=== PATIENT | female | born 1950 | race Caucasian/White ===

== ENCOUNTER 2018-09-14 08:50 | Observation (INO) | payer MEDICARE, OTHER ==
[~2018-09-14] VITALS: Ht 162.6 cm; Wt 79.0 kg
[2018-09-14] MEDS ORDERED: OMEP-110 PO (09:46)
[2018-09-14] MEDS ORDERED: ASPIRIN 81 MG TABLET CHEW ONE (09:48)
[2018-09-14] MEDS ORDERED: ASPIRIN 81 MG TABLET CHEW PO ONE (10:00)
[2018-09-14 10:03] LABS: BASOPHILS # (AUTO) 0.02 x10^3/uL (0-0.1); BASOPHILS % (AUTO) 0 % (0-1); EOSINOPHILS # (AUTO) 0.07 x10^3/uL (0-0.4); EOSINOPHILS % (AUTO) 1 % (1-7); LYMPHOCYTES # (AUTO) 1.39 x10^3/uL (1-3.4); LYMPHOCYTES % (AUTO) 27 % (22-44); MD NO; MEAN CORPUSCULAR HEMOGLOBIN 30.6 pg (27.0-34.8); MEAN CORPUSCULAR HGB CONC 34.1 g/dL (32.4-35.8); MEAN CORPUSCULAR VOLUME 89.7 fL (80-100); MEAN PLATELET VOLUME 8.6 fL (7.4-10.4); MONOCYTES # (AUTO) 0.31 x10^3/uL (0.2-0.8); MONOCYTES % (AUTO) 6 % (2-9); NEUTROPHILS % (AUTO) 66 % (42-75); PLATELET COUNT 218 x10^3/uL (130-400); RED BLOOD COUNT 4.89 x10^6/uL (3.82-5.3)
[2018-09-14 10:13] LABS: ANION GAP 7 mmol/L (5-15); CHLORIDE 110 mmol/L (98-107); CREATININE 0.72 mg/dL (0.55-1.02)
[2018-09-14 10:15] LABS: TROPONIN I < 0.015 ng/mL (0.000-0.045)
--- NOTE | 2018-09-14 10:44 | NUR ---
CONTINUE TO MONITOR PT. PT IN NO DISTRESS WHILE RESTING
[2018-09-14] MEDS ORDERED: SODIUM CHLORIDE FLUSH 10ML SYR IVF ONE (11:00)
--- NOTE | 2018-09-14 11:15 | NUR ---
HOSPITALIST AT BEDSIDE
--- NOTE | 2018-09-14 11:43 | NUR ---
TASK RN: PT RESTING ON GURNEY. NADN. MAS. PT AWARE OF POC FOR ADMIT.
[2018-09-14] MEDS ORDERED: ACETAMINOPHEN 650 MG/20.3 ML UDC PO PRN (12:00)
[2018-09-14] MEDS ORDERED: morphine SULFATE 10 MG/ML, 1ML IV PRN (12:00)
[2018-09-14] MEDS ORDERED: ONDANSETRON 2MG/ML, 2ML IVP PRN (12:00)
[2018-09-14] MEDS ORDERED: ENOXAPARIN 40 MG/0.4 ML SQ SCH (12:00)
[2018-09-14] MEDS ORDERED: NITROGLYCERIN SINGLE TAB 0.4 MG SL PRN (12:00)
[2018-09-14] MEDS ORDERED: NITROGLYCERIN 0.4 MG BOTTLE (25 TABS) SL PRN (12:00)
[2018-09-14] MEDS ORDERED: BISACODYL 5 MG EC TABLET PO PRN (12:00)
[2018-09-14] MEDS ORDERED: NITROGLYCERIN 0.4 MG/SPRAY SL PRN (12:00)
[2018-09-14] MEDS ORDERED: MAALOX/HYOSCYAMINE/LIDOCAINE 45 ML BTL PO PRN (12:00)
[2018-09-14 12:10] LABS: ALBUMIN 3.9 g/dL (3.4-5.0); BILIRUBIN, DIRECT 0.1 mg/dL (0.1-0.2)
[2018-09-14 12:13] LABS: BILIRUBIN,INDIRECT 0.3 mg/dL (0.0-2.0); BILIRUBIN,TOTAL 0.4 mg/dL (0.2-1.0); TOTAL PROTEIN 7.2 g/dL (6.4-8.2)
--- NOTE | 2018-09-14 12:37 | NUR ---
WATCHING TELEVISION. AWAITING ROOM ASSIGNMENT. CONTINUE TO MONITOR
--- NOTE | 2018-09-14 12:46 | NUR ---
REPORT TO ZOE ESPINOZA
[2018-09-14 13:00] VITALS: BP 141/73
[2018-09-14] MEDS: OMEPRAZOLE 20 MG CAPSULE.DR PO SCH (13:20)
[2018-09-14 13:27] VITALS: BP 107/73
[2018-09-14 16:13] LABS: TROPONIN I < 0.015 ng/mL (0.000-0.045)
[2018-09-14 20:29] VITALS: BP 108/69
[2018-09-14] MEDS: SODIUM CHLORIDE FLUSH 10ML SYR IVF SCH (21:09)
[2018-09-14 22:22] LABS: TROPONIN I < 0.015 ng/mL (0.000-0.045)
[2018-09-15 00:07] VITALS: BP 100/68
[2018-09-15 05:32] LABS: CHOL/HDL RATIO 4.2; LDL/HDL RATIO 2.9 (0.5-3.0)
[2018-09-15] MEDS: OMEPRAZOLE 20 MG CAPSULE.DR PO SCH (05:58)
[2018-09-15] MEDS ORDERED: ASPIRIN 325 MG TABLET EC PO SCH (06:00)
[2018-09-15 07:50] VITALS: BP 125/88
[2018-09-15] MEDS ORDERED: REGADENOSON 0.4 MG/5 ML SYRINGE ONE (08:11)
[2018-09-15] MEDS: SODIUM CHLORIDE FLUSH 10ML SYR IVF SCH (08:25)
== END 2018-09-15 12:30 | disposition home or self-care (01) ==
LOC: ED 10:57 → EDIP 11:41 → 5SO 12:57 → DCLOUNGE 09-15 12:19
PROVIDERS: ADMIT Hospitalist; ATTEND Internal Medicine
DX: R07.89 Other chest pain (principal); K21.9 Gastro-esophageal reflux disease without esophagitis; R79.89 Other specified abnormal findings of blood chemistry; F45.21 Hypochondriasis; R11.0 Nausea
CPT/HCPCS: 36415; 71045; 76700; 78452; 80048; 80061; 80076; 82040; 84484; 85025; 93005; 93017; 96372; 99284; A9502; C9898; G0378; J1650; J2785